=== PATIENT | male | born 1970 | race Two or more races ===

== ENCOUNTER 2023-08-06 21:01 | Inpatient (IN) | payer MEDICARE, MEDICAID ==
[~2023-08-06] VITALS: Ht 177.8 cm; Wt 110.0 kg
[2023-08-06] MEDS ORDERED: ONDANSETRON HCL 4 MG/2 ML VIAL ONE (21:04)
[2023-08-06] MEDS ORDERED: ONDANSETRON HCL 4 MG/2 ML VIAL IV ONE (21:15)
[2023-08-06 21:49] LABS: Basophils # (auto) 0 10 ^3/uL (0-0.2); Basophils % (auto) 0.1 % (0.0-2.0); Eosinophils # (auto) 0 10 ^3/uL (0-0.8); Eosinophils % (auto) 0.1 % (0.0-7.0); Hematocrit 40.1 % (41.0-53.0); Hemoglobin 13.5 g/dL (13.5-17.5); Lymphocytes # (auto) 0.8 10 ^3/uL (0.4-5.4); Lymphocytes % (auto) 4.2 % (10.0-50.0); Mean Corpuscular Hemoglobin 29.1 pg (28.0-32.0); Mean Corpuscular Hgb Conc. 33.7 g/dL (32.0-36.0); Mean Corpuscular Volume 86.5 fL (80.0-100.0); Monocytes % (auto) 4.9 % (0.0-12.0); Neutrophils # (auto) 17.9 10 ^3/uL (1.6-8.6); Neutrophils % (auto) 90.7 % (37.0-80.0); Red Blood Cells 4.64 10^6/uL (4.5-5.90); Red Cell Distribution Width 14.1 % (11.8-14.3); White Blood Cell 19.7 10^3/uL (4.4-10.8)
[2023-08-06] MEDS ORDERED: DEXTROSE 50% SYRINGE 50 ML IV ONE (21:52)
[2023-08-06 22:00] LABS: Alanine Aminotransferase 44 U/L (7-40); Albumin 3.3 g/dL (3.2-4.8); Alkaline Phosphatase 70 U/L (46-116); Anion Gap 7 (5-15); Aspartate Aminotransferase 56 U/L (13-40); BUN/Creatinine Ratio 22.2 (10.0-20.0); Bilirubin, Total 0.4 mg/dL (0.2-1.0); Blood Urea Nitrogen 20 mg/dL (9-23); Calcium 7.4 mg/dL (8.7-10.4); Carbon Dioxide 26 mmol/L (20-30); Chloride 95 mmol/L (98-107); Glucose 76 mg/dL (74-106); Potassium 2.7 mmol/L (3.5-5.1); Sodium 128 mmol/L (136-145)
[2023-08-06] MEDS ORDERED: DEXTROSE (50%) 50ML SYRG IV ONE (22:00)
[2023-08-06 22:01] LABS: Total Protein 5.6 g/dL (5.7-8.2)
[2023-08-06] MEDS ORDERED: SODIUM CHLORIDE 0.9% 1,000 ML IVB ONE (22:15)
[2023-08-06 22:55] LABS: INR 1.06 (0.9-1.15); Partial Thromboplastin Time 30.8 SEC (24.5-34.5); Prothrombin Time 11.1 sec (9.3-11.8)
[2023-08-07] VITALS (12 sets, daily range): BP systolic 97–114; BP diastolic 57–67; PULSE 74–105; RESP 13–24; TEMP 98.4; O2SAT 93–98
[2023-08-07] MEDS ORDERED: DEXTROSE 50% SYRINGE 50 ML IV ONE (00:14)
[2023-08-07] MEDS ORDERED: DEXTROSE 10% 1,000 ML IV SCH ×2 (00:15→06:15)
[2023-08-07] MEDS ORDERED: DEXTROSE (50%) 50ML SYRG IV ONE (00:15)
[2023-08-07 01:00] LABS: Lactic Acid w/Reflex 2.3 mmol/L (0.4-2.0)
[2023-08-07] MEDS ORDERED: SODIUM CHLORIDE 0.9% 3,150 ML IV ONE (02:00)
[2023-08-07] MEDS ORDERED: GLUCAGON EMERG KIT 1mg/1ml IM ONE (02:00)
[2023-08-07] MEDS ORDERED: OCTREOTIDE ACETATE 500 MCG in SODIUM CHL 0.9% 99 ML IV SCH (02:00)
[2023-08-07] MEDS ORDERED: cefTRIAXone 1GM/50ML D5W 50 ML IV ONE (02:45)
[2023-08-07] MEDS ORDERED: ACETAMINOPHEN 325 MG TAB PO PRN (02:45)
[2023-08-07] MEDS ORDERED: NITROGLYCERIN 0.4 MG SL TAB SL PRN (02:45)
[2023-08-07] MEDS ORDERED: MORPHINE SULFATE INJ 2 MG/ml SYRG IV PRN (02:45)
[2023-08-07] MEDS ORDERED: DEXTROSE (50%) 50ML SYRG IV PRN (02:45)
[2023-08-07] MEDS: POTASSIUM CHL 20MEQ/100ML 100 ML IV SCH ×2 (03:30→06:37)
[2023-08-07] MEDS: InsuLIN REG 1unit/0.01ml Soln (100units/ml) SC SCH ×5 (04:00→20:00)
[2023-08-07] MEDS ORDERED: ACCU-CHEK COMFORT CURVE STRIP VI SCH (04:00)
[2023-08-07] MEDS ORDERED: LACTATED RINGER'S 1,000 ML IV ONE (04:15)
[2023-08-07] MEDS: ACCU-CHEK COMFORT CURVE STRIP VI SCH ×8 (04:28→22:16)
[2023-08-07] MEDS: metroNIDAZOLE 500MG/100ML 100 ML IV SCH ×4 (05:00→21:44)
[2023-08-07 05:56] LABS: Lactic Acid w/Reflex 3.3 mmol/L (0.4-2.0)
[2023-08-07] MEDS ORDERED: PIPERACILLIN-TAZOB 3.375GM 100 ML IV SCH (06:00)
[2023-08-07 06:53] LABS: Urine Bacteria FEW /hpf (None Seen); Urine Blood Negative /uL (Negative); Urine Clarity Clear (Clear); Urine Color Straw (Yellow); Urine Protein, UAD Negative (Negative); Urine Specific Gravity 1.004 (1.001-1.035); Urine Urobilinogen Normal (Negative); Urine WBC <1 /hpf (0 - 3)
[2023-08-07 07:01] LABS: Amphetamine Screen, Urine Neg (NEGATIVE); Barbiturate Scree,Urine Neg (NEGATIVE); Benzodiazephine Screen, Urine Neg (NEGATIVE); Cocaine Screen, Urine Neg (NEGATIVE)
[2023-08-07 07:02] LABS: Cannabinoid Screen, Urine Neg (NEGATIVE); Opiate Scree,Urine Neg (NEGATIVE); Phencyclidine Screen, Urine Neg (NEGATIVE)
[2023-08-07] MEDS ORDERED: cefTRIAXone 1GM/50ML D5W 50 ML IV SCH (09:00)
[2023-08-07] MEDS: ENOXAPARIN SOD 40 MG/0.4 ML SYRINGE SC SCH (10:00)
[2023-08-07] MEDS ORDERED: VANCOMYCIN 1GM/250ML 250 ML IV SCH (10:00)
[2023-08-07] MEDS ORDERED: GLIP5TAB12 PO (16:33)
[2023-08-07] MEDS ORDERED: PIOG1TAB51 OR (16:33)
[2023-08-07] MEDS ORDERED: ARIP1TAB7 PO (16:33)
[2023-08-07] MEDS ORDERED: COLE1TAB5 PO (16:33)
[2023-08-07] MEDS ORDERED: LOSA25TA15 PO (16:33)
[2023-08-07] MEDS ORDERED: METF-371 PO (16:52)
[2023-08-07 17:53] LABS: Chloride 100 mmol/L (98-107); Sodium 132 mmol/L (136-145)
[2023-08-07 17:54] LABS: Anion Gap 4 (5-15); Calcium 7.5 mg/dL (8.7-10.4); Carbon Dioxide 28 mmol/L (20-30)
[2023-08-07 17:59] LABS: BUN/Creatinine Ratio 20.3 (10.0-20.0); Blood Urea Nitrogen 14 mg/dL (9-23); Glucose 168 mg/dL (74-106)
[2023-08-07 18:00] LABS: Magnesium 1.1 mg/dL (1.6-2.6)
[2023-08-07] MEDS: D5W/SOD CHL 0.45%/KCL 20MEQ 1,000 ML IV SCH (20:07)
[2023-08-08] MEDS ORDERED: ACCU-CHEK COMFORT CURVE STRIP VI SCH
[2023-08-08] MEDS: cefTRIAXone 1GM/50ML D5W 50 ML IV SCH (03:37)
[2023-08-08] MEDS: ACCU-CHEK COMFORT CURVE STRIP VI SCH ×8 (03:38→22:00)
[2023-08-08] MEDS: InsuLIN REG 1unit/0.01ml Soln (100units/ml) SC SCH ×5 (03:38→22:00)
[2023-08-08] MEDS: D5W/SOD CHL 0.45%/KCL 20MEQ 1,000 ML IV SCH (03:59)
[2023-08-08] MEDS: metroNIDAZOLE 500MG/100ML 100 ML IV SCH ×3 (05:55→22:55)
[2023-08-08 06:28] LABS: Basophils # (auto) 0 10 ^3/uL (0-0.2); Basophils % (auto) 0.3 % (0.0-2.0); Eosinophils # (auto) 0.1 10 ^3/uL (0-0.8); Hematocrit 34.8 % (41.0-53.0); Hemoglobin 11.7 g/dL (13.5-17.5); Lymphocytes # (auto) 1.1 10 ^3/uL (0.4-5.4); Lymphocytes % (auto) 10.3 % (10.0-50.0); Mean Corpuscular Hemoglobin 28.8 pg (28.0-32.0); Mean Corpuscular Hgb Conc. 33.6 g/dL (32.0-36.0); Mean Corpuscular Volume 85.6 fL (80.0-100.0); Monocytes # (auto) 0.7 10 ^3/uL (0-1.3); Monocytes % (auto) 6.9 % (0.0-12.0); Neutrophils # (auto) 8.3 10 ^3/uL (1.6-8.6); Neutrophils % (auto) 81.5 % (37.0-80.0); Red Blood Cells 4.07 10^6/uL (4.5-5.90); Red Cell Distribution Width 14.2 % (11.8-14.3); White Blood Cell 10.2 10^3/uL (4.4-10.8)
[2023-08-08 06:34] LABS: Albumin 2.8 g/dL (3.2-4.8); Alkaline Phosphatase 71 U/L (46-116); Anion Gap 4 (5-15); Aspartate Aminotransferase 22 U/L (13-40); BUN/Creatinine Ratio 19.4 (10.0-20.0); Blood Urea Nitrogen 13 mg/dL (9-23); Calcium 7.9 mg/dL (8.5-10.1); Carbon Dioxide 29 mmol/L (20-30); Chloride 102 mmol/L (98-107); Glucose 145 mg/dL (74-106); Potassium 3.3 mmol/L (3.5-5.1); Sodium 135 mmol/L (136-145)
[2023-08-08 06:35] LABS: Bilirubin, Total 0.4 mg/dL (0.2-1.0); Total Protein 4.8 g/dL (5.7-8.2)
[2023-08-08 06:56] LABS: Alanine Aminotransferase 33 U/L (7-40)
[2023-08-08 07:40] VITALS: PULSE 75; RESP 13; O2SAT 97
[2023-08-08] MEDS ORDERED: DEXTROSE (50%) 50ML SYRG IV PRN (08:45)
[2023-08-08] MEDS ORDERED: cefTRIAXone 1GM/50ML D5W 50 ML IV SCH (09:00)
[2023-08-08] MEDS: SOD CHL 0.9%/ KCL 40MEQ 1,000 ML IV SCH ×2 (09:27→21:50)
[2023-08-08] MEDS: ENOXAPARIN SOD 40 MG/0.4 ML SYRINGE SC SCH (10:42)
[2023-08-08] MEDS ORDERED: CHOLESTYRAMINE 4 GM POWDER PO ONE (15:00)
[2023-08-08] MEDS ORDERED: DIPHENOXYLATE W/ATROPINE 2.5 MG TAB PO PRN (15:00)
[2023-08-08 16:12] VITALS: BP 118/63; PULSE 73; RESP 20; TEMP 97.6; O2SAT 94
[2023-08-08 18:00] VITALS: O2SAT 94
[2023-08-08 22:00] VITALS: BP 100/59; PULSE 83; RESP 20; TEMP 98.2; O2SAT 95
[2023-08-09] MEDS: cefTRIAXone 1GM/50ML D5W 50 ML IV SCH (03:16)
[2023-08-09] MEDS: ACCU-CHEK COMFORT CURVE STRIP VI SCH ×10 (04:00→21:44)
[2023-08-09 05:00] VITALS: BP 140/78; PULSE 69; RESP 19; TEMP 98.4; O2SAT 93
[2023-08-09] MEDS: metroNIDAZOLE 500MG/100ML 100 ML IV SCH ×3 (06:00→21:46)
[2023-08-09] MEDS: InsuLIN REG 1unit/0.01ml Soln (100units/ml) SC SCH ×4 (06:58→21:45)
[2023-08-09 07:03] LABS: Basophils # (auto) 0 10 ^3/uL (0-0.2); Basophils % (auto) 0.4 % (0.0-2.0); Eosinophils # (auto) 0.1 10 ^3/uL (0-0.8); Eosinophils % (auto) 1.3 % (0.0-7.0); Hematocrit 34.3 % (41.0-53.0); Hemoglobin 11.6 g/dL (13.5-17.5); Lymphocytes # (auto) 1.1 10 ^3/uL (0.4-5.4); Lymphocytes % (auto) 13.4 % (10.0-50.0); Mean Corpuscular Hemoglobin 29.3 pg (28.0-32.0); Mean Corpuscular Hgb Conc. 33.9 g/dL (32.0-36.0); Mean Corpuscular Volume 86.3 fL (80.0-100.0); Monocytes # (auto) 0.7 10 ^3/uL (0-1.3); Monocytes % (auto) 9.1 % (0.0-12.0); Neutrophils # (auto) 6.1 10 ^3/uL (1.6-8.6); Neutrophils % (auto) 75.8 % (37.0-80.0); Nucleated Red Blood Cells % 0.1 %; Red Blood Cells 3.97 10^6/uL (4.5-5.90); Red Cell Distribution Width 14.2 % (11.8-14.3)
[2023-08-09 07:14] LABS: Chloride 106 mmol/L (98-107); Potassium 3.6 mmol/L (3.5-5.1); Sodium 139 mmol/L (136-145)
[2023-08-09 07:15] LABS: Anion Gap 4 (5-15); Carbon Dioxide 29 mmol/L (20-30)
[2023-08-09 07:21] LABS: BUN/Creatinine Ratio 17.6 (10.0-20.0); Blood Urea Nitrogen 9 mg/dL (9-23); Glucose 110 mg/dL (74-106)
[2023-08-09 09:00] VITALS: BP 136/85; PULSE 75; RESP 18; TEMP 98.3; O2SAT 90
[2023-08-09] MEDS: ENOXAPARIN SOD 40 MG/0.4 ML SYRINGE SC SCH (10:28)
[2023-08-09] MEDS: CHOLESTYRAMINE 4 GM POWDER PO SCH (10:29)
[2023-08-09] MEDS: SOD CHL 0.9%/ KCL 40MEQ 1,000 ML IV SCH (11:41)
[2023-08-09 13:00] VITALS: BP 120/63; PULSE 79; RESP 19; TEMP 98.1; O2SAT 90
[2023-08-09 20:00] VITALS: PULSE 70; RESP 20; O2SAT 93
[2023-08-09 22:00] VITALS: BP 111/70; PULSE 70; RESP 20; TEMP 98.6; O2SAT 93
[2023-08-10] VITALS (7 sets, daily range): BP systolic 110–144; BP diastolic 78–90; PULSE 69–76; RESP 16–20; TEMP 97.6–98.8; O2SAT 91–100
[2023-08-10] MEDS: SOD CHL 0.9%/ KCL 40MEQ 1,000 ML IV SCH (01:35)
[2023-08-10] MEDS: cefTRIAXone 1GM/50ML D5W 50 ML IV SCH (03:03)
[2023-08-10] MEDS: ACCU-CHEK COMFORT CURVE STRIP VI SCH ×10 (04:00→22:07)
[2023-08-10] MEDS: InsuLIN REG 1unit/0.01ml Soln (100units/ml) SC SCH ×4 (06:16→22:15)
[2023-08-10] MEDS: metroNIDAZOLE 500MG/100ML 100 ML IV SCH ×3 (06:16→22:07)
[2023-08-10 06:52] LABS: Chloride 107 mmol/L (98-107); Potassium 4.3 mmol/L (3.5-5.1); Sodium 141 mmol/L (136-145)
[2023-08-10 06:53] LABS: Anion Gap 4 (5-15); Calcium 7.9 mg/dL (8.5-10.1); Carbon Dioxide 30 mmol/L (20-30)
[2023-08-10 06:58] LABS: BUN/Creatinine Ratio 17.5 (10.0-20.0); Blood Urea Nitrogen 10 mg/dL (9-23); Glucose 111 mg/dL (74-106)
[2023-08-10 07:01] LABS: Hematocrit 33.6 % (41.0-53.0); Hemoglobin 11.1 g/dL (13.5-17.5); Mean Corpuscular Hemoglobin 28.6 pg (28.0-32.0); Mean Corpuscular Hgb Conc. 33.1 g/dL (32.0-36.0); Mean Corpuscular Volume 86.7 fL (80.0-100.0); Red Blood Cells 3.87 10^6/uL (4.5-5.90); Red Cell Distribution Width 14.3 % (11.8-14.3); White Blood Cell 6.7 10^3/uL (4.4-10.8)
[2023-08-10 07:14] LABS: Basophils % (manual) 0 (0.0-2.0); Blast Cells 0; Myelocytes % 0; Reactive Lymphocytes 0
[2023-08-10] MEDS ORDERED: FUROSEMIDE 20 MG/2 ML VIAL IV ONE (09:15)
[2023-08-10 09:26] LABS: Band Neutrophils % (manual) 3; Eosinophils % (manual) 1 (0-7); Lymphocytes % (manual) 11 (10.0-50.0); Metamyelocytes % 1; Monocytes % (manual) 6 (0-12); Platelet Estimate Adequate; Promyelocytes % 1
[2023-08-10] MEDS: ENOXAPARIN SOD 40 MG/0.4 ML SYRINGE SC SCH (09:36)
[2023-08-10] MEDS: CHOLESTYRAMINE 4 GM POWDER PO SCH (11:30)
[2023-08-11] MEDS: ACCU-CHEK COMFORT CURVE STRIP VI SCH ×10 (04:00→21:34)
[2023-08-11 05:00] VITALS: BP 129/84; PULSE 70; RESP 18; TEMP 98; O2SAT 98
[2023-08-11] MEDS: metroNIDAZOLE 500MG/100ML 100 ML IV SCH ×3 (05:28→21:31)
[2023-08-11] MEDS: InsuLIN REG 1unit/0.01ml Soln (100units/ml) SC SCH ×4 (06:23→21:32)
[2023-08-11 07:22] LABS: Basophils # (auto) 0 10 ^3/uL (0-0.2); Basophils % (auto) 0.7 % (0.0-2.0); Eosinophils # (auto) 0.1 10 ^3/uL (0-0.8); Eosinophils % (auto) 1.2 % (0.0-7.0); Hematocrit 34.6 % (41.0-53.0); Hemoglobin 11.6 g/dL (13.5-17.5); Lymphocytes % (auto) 14.6 % (10.0-50.0); Mean Corpuscular Hemoglobin 29.1 pg (28.0-32.0); Mean Corpuscular Hgb Conc. 33.4 g/dL (32.0-36.0); Mean Corpuscular Volume 87.1 fL (80.0-100.0); Monocytes # (auto) 0.6 10 ^3/uL (0-1.3); Neutrophils # (auto) 5.4 10 ^3/uL (1.6-8.6); Neutrophils % (auto) 75.5 % (37.0-80.0); Nucleated Red Blood Cells % 0.1 %; Red Blood Cells 3.97 10^6/uL (4.5-5.90); Red Cell Distribution Width 14.7 % (11.8-14.3); White Blood Cell 7.1 10^3/uL (4.4-10.8)
[2023-08-11 07:48] LABS: Chloride 104 mmol/L (98-107); Potassium 4.2 mmol/L (3.5-5.1); Sodium 141 mmol/L (136-145)
[2023-08-11 07:49] LABS: Anion Gap 5 (5-15); Carbon Dioxide 32 mmol/L (20-30)
[2023-08-11 07:50] LABS: Calcium 8.3 mg/dL (8.5-10.1)
[2023-08-11 07:54] LABS: BUN/Creatinine Ratio 17.7 (10.0-20.0); Blood Urea Nitrogen 11 mg/dL (9-23); Glucose 109 mg/dL (74-106)
[2023-08-11 08:55] VITALS: BP 128/76; PULSE 63; RESP 20; TEMP 98.6; O2SAT 94
[2023-08-11] MEDS: AZITHROMYCIN 500MG/ 250ML 250 ML IV SCH (10:47)
[2023-08-11] MEDS: CHOLESTYRAMINE 4 GM POWDER PO SCH (10:47)
[2023-08-11] MEDS: ENOXAPARIN SOD 40 MG/0.4 ML SYRINGE SC SCH (10:48)
[2023-08-11 12:55] VITALS: BP 149/81; PULSE 62; RESP 21; TEMP 98.5; O2SAT 94
[2023-08-11 16:48] LABS: COVID19 ANTIGEN SOFIA FIA NEGATIVE (NEGATIVE)
[2023-08-11 16:50] VITALS: BP 123/71; PULSE 63; RESP 21; TEMP 98.5; O2SAT 93
[2023-08-12] MEDS: ACCU-CHEK COMFORT CURVE STRIP VI SCH ×10 (04:00→23:05)
[2023-08-12 05:00] VITALS: BP 130/61; PULSE 62; RESP 18; O2SAT 93
[2023-08-12] MEDS: metroNIDAZOLE 500MG/100ML 100 ML IV SCH ×3 (05:54→22:49)
[2023-08-12] MEDS: InsuLIN REG 1unit/0.01ml Soln (100units/ml) SC SCH ×4 (06:30→22:00)
[2023-08-12 08:00] VITALS: BP 119/59; PULSE 75; RESP 18; TEMP 98.4; O2SAT 92
[2023-08-12 09:00] VITALS: BP 119/59; PULSE 75; RESP 18; O2SAT 92
[2023-08-12] MEDS: AZITHROMYCIN 500MG/ 250ML 250 ML IV SCH (10:00)
[2023-08-12] MEDS: CHOLESTYRAMINE 4 GM POWDER PO SCH (10:00)
[2023-08-12] MEDS: ENOXAPARIN SOD 40 MG/0.4 ML SYRINGE SC SCH (10:01)
[2023-08-12] MEDS ORDERED: cefTRIAXone 1GM/50ML D5W 50 ML IV ONE (10:30)
[2023-08-12 13:00] VITALS: BP 125/69; PULSE 68; RESP 18; TEMP 98.4; O2SAT 92
[2023-08-12 17:00] VITALS: BP 131/71; PULSE 69; RESP 18; TEMP 98.1; O2SAT 92
[2023-08-12 22:00] VITALS: BP 121/66; PULSE 68; RESP 19; TEMP 98.8; O2SAT 93
[2023-08-13] MEDS: ACCU-CHEK COMFORT CURVE STRIP VI SCH ×5 (00:02→11:29)
[2023-08-13 04:32] VITALS: BP 118/66; PULSE 70; RESP 20; TEMP 98.2; O2SAT 96
[2023-08-13] MEDS: InsuLIN REG 1unit/0.01ml Soln (100units/ml) SC SCH ×2 (06:23→11:56)
[2023-08-13] MEDS: metroNIDAZOLE 500MG/100ML 100 ML IV SCH (06:23)
[2023-08-13 08:00] VITALS: BP 119/59; PULSE 61; PULSE 75; RESP 18; RESP 20; TEMP 98.4; O2SAT 92
[2023-08-13] MEDS ORDERED: cefTRIAXone 1GM/50ML D5W 50 ML IV SCH (09:00)
[2023-08-13 09:17] VITALS: BP 138/80; PULSE 61; RESP 20; TEMP 97.9; O2SAT 92
[2023-08-13] MEDS: AZITHROMYCIN 500MG/ 250ML 250 ML IV SCH ×2 (10:00→11:29)
[2023-08-13] MEDS ORDERED: LEVO500T91 PO (10:06)
[2023-08-13] MEDS ORDERED: BLOO1KIT60 XX (10:06)
[2023-08-13] MEDS ORDERED: METF-370 PO (10:06)
[2023-08-13] MEDS: CHOLESTYRAMINE 4 GM POWDER PO SCH (11:29)
[2023-08-13] MEDS: ENOXAPARIN SOD 40 MG/0.4 ML SYRINGE SC SCH (11:29)
[2023-08-13 13:03] VITALS: BP 137/88; PULSE 63; RESP 20; TEMP 97.5; O2SAT 92
[2023-08-13 13:35] VITALS: BP 137/88; PULSE 63; RESP 20; TEMP 97.5; O2SAT 92
== END 2023-08-13 16:04 | disposition home or self-care (01) | DRG 871 ==
LOC: ER 21:01 → EDBD 21:01 → TELE 08-07 02:49 → TELE-EAST 08-08 15:38 → EAST 08-10 00:21 → CENTRAL 08-11 19:45
PROVIDERS: ADMIT Nurse Practitioner; ATTEND Nurse Practitioner Acute Care
DX: A41.9 Sepsis, unspecified organism (principal); G93.41 Metabolic encephalopathy; R65.21 Severe sepsis with septic shock; E87.1 Hypo-osmolality and hyponatremia; N17.9 Acute kidney failure, unspecified; E11.649 Type 2 diabetes mellitus with hypoglycemia without coma; E66.9 Obesity, unspecified; E87.6 Hypokalemia; R19.7 Diarrhea, unspecified; Z68.21 Body mass index [BMI] 21.0-21.9, adult; D64.9 Anemia, unspecified; I27.20 Pulmonary hypertension, unspecified; K76.0 Fatty (change of) liver, not elsewhere classified; K80.20 Calculus of gallbladder without cholecystitis without obstruction; Z20.822 Contact with and (suspected) exposure to COVID-19
CPT/HCPCS: 36415; 70450; 71045; 71250; 74176; 80048; 80053; 80307; 80320; 81001; 82010; 82962; 83036; 83605; 83735; 83880; 84443; 84484; 85007; 85025; 85027; 85610; 85730; 87040; 87045; 87086; 87426; 87427; 87493; 96361; 96374; 96376; 97110; 97116; 97163; 97530; G0378; J0696; J1815; J2405; J3480; J3490

== ENCOUNTER 2024-11-18 20:31 | Inpatient (IN) | payer MEDICAID, MEDICARE ==
[~2024-11-18] VITALS: Ht 167.6 cm; Wt 57.2 kg
[~2024-11-18 20:31] MED LIST: ARIP20TA4 PO; BLOO1KIT60 XX; COLE1TAB5 PO; LEVO500T91 PO; LOSA-533 PO; METF-370 PO
--- NOTE | 2024-11-18 21:04 | ED.PDOC ---
History of Present Illness HPI Comments 54y/o M, brought in by caregiver presents to the ED for CC of abdominal pain. Per caregiver, patient has been experiencing abdominal pain with associated dermatitis x6-7weeks. Caregiver relays, patient was seen by PCP for symptoms an was prescribed an ointment for the rash and an enema was given resulting in moderate stool excretion. Caregiver states, that patient is not acting appropriately and is not performing at his normal baseline. No other symptoms or modifying factors at this time. Chief Complaint: Abdominal Pain Time Seen by MD: 21:01 Reviewed Notes: Nurses Notes, Medications, Allergies Allergies: Coded Allergies: NO KNOWN ALLERGIES (Unverified , 08/06/23) Home Meds Active Scripts Blood Glucose Monitoring Suppl (D-Care Glucometer Kit/Glu W/Device) 1 Kit Kit, KIT XX BID, #1 Prov:MARIA T MCKEON BOMB LOADER 08/13/23 Levofloxacin Hemihydrate (LEVAQUIN 500 MG) 500 Mg Tab, 500 MG PO DAILY for 7 Days, #7 TAB Prov:MARIA T MCKEON BOMB LOADER 08/13/23 Metformin Hydrochloride (Metformin Hcl) 500 Mg Tab, 0.5 TAB PO BID for 60 Days, #60 TAB 3 Refills Prov:MARIA T MCKEON BOMB LOADER 08/13/23 Reported Medications Aripiprazole (Abilify) 20 Mg Tab, 1 TAB PO DAILY, #30 TAB 1 Refill 08/07/23 Colestipol Hcl (Micronized Colestipol Hcl) 1 Gm Tab, 1 GM PO DAILY, TAB 08/07/23 Losartan Potassium (Losartan Potassium) 25 Mg Tab, 1 TAB PO DAILY, #90 TAB 1 Refill 08/07/23 Information Source: Relative Mode of Arrival: Wheelchair Severity: Moderate Timing: Weeks Duration: Since onset Prehospital treatment: None Past Medical History PAST MEDICAL HISTORY: DM, HTN Surgical History: Denies all surgeries Family History Family History: Unknown Social History Smoker: Non-Smoker Alcohol: Denies ETOH Use Drugs: Denies Drug Use Lives In: Home Constitutional: denies: chills, diaphoresis, fatigue, fever, malaise, sweats, weakness, others EENTM: denies: blurred vision, double vision, ear bleeding, ear discharge, ear drainage, ear pain, ear ringing, eye pain, eye redness, hearing loss, mouth pain, mouth swelling, nasal discharge, nose bleeding, nose congestion, nose pain, photophobia, tearing, throat pain, throat swelling, voice changes, others Respiratory: denies: cough, hemoptysis, orthopnea, SOB at rest, shortness of breath, SOB with excertion, stridor, wheezing, others Cardiovascular: denies: chest pain, dizzy spells, diaphoresis, Dyspnea on exertion, edema, irregular heart beat, left arm pain, lightheadedness, palpitations, PND, syncope, others Gastrointestinal: reports: abdominal pain, constipated; denies: abdomen distended, blood streaked bowels, diarrhea, dysphagia, difficulty swallowing, hematemesis, melena, nausea, poor appetite, poor fluid intake, rectal bleeding, rectal pain, vomiting, others Genitourinary: denies: burning, dysuria, flank pain, frequency, hematuria, incontinence, penile discharge, penile sore, pain, testicle pain, testicle swelling, urgency, others Neurological: denies: dizziness, fainting, headache, left sided numbness, left sided weakness, numbness, paresthesia, pre-existing deficit, right sided numbness, right sided weakness, seizure, speech problems, tingling, tremors, weakness, others Musculoskeletal: denies: back pain, gout, joint pain, joint swelling, muscle pain, muscle stiffness, neck pain, others Integumetry: denies: bruises, change in color, change in hair/nails, dryness, laceration, lesions, lumps, rash, wounds, others Allergic/Immunocompromised: denies: Difficulty Healing, Frequent Infections, Hives, Itching, others Hematologic/Lymphatic: denies: anemia, blood clots, easy bleeding, easy bruising, swollen glands, others Endocrine: denies: excessive hunger, excessive sweating, excessive thirst, excessive urination, flushing, intolerance to cold, intolerance to heat, unexplained weight gain, unexplained weight loss, others Psychiatric: denies: anxiety, bipolar disorder, depression, hopeless, panic disorder, schizophrenia, sleepless, suicidal, others All Other Systems: Reviewed and Negative Physical Exam General Appearance: Moderate Distress, Normal HEENT: Normal ENT Inspection, Pharynx Normal, TMs Normal Neck: Full Range of Motion, Non-Tender, Normal, Normal Inspection Respiratory: Chest Non-Tender, Lungs Clear, No Accessory Muscle Use, No Respiratory Distress, Normal Breath Sounds Cardiovascular: No Edema, No JVD, No Murmur, No Gallop, Normal Peripheral Pulses, Regular Rate/Rhythm Breast Exam: Deferred Gastrointestinal: No Organomegaly, Non Tender, No Pulsatile Mass, Normal Bowel Sounds, Soft Genitalia: Deferred Pelvic: Deferred Rectal: Deferred Extremities: No calf tenderness, Normal capillary refill, Normal inspection, Normal range of motion, Non-tender, No pedal edema Musculoskeletal : Apperance: Normal Neurologic: Depressed Affect, Other (MENTAL DELAYS, DOES NOT NORMAL BASELINE IN HIS, CAREGIVER STATES PATIENT NOT ACTING SELF) Cerebellar Function: NOT DONE Reflexes: Normal, NOT DONE Skin: Dry, Normal Color, Warm Lymphatic: No Adenopathy Was a procedure done? Was a procedure done?: No Differential Dx Considerations may include: Cellulitis, psoriasis, contact dermitis, gastritis, diverticulitis, constipation, viral, bacterial, food poisoning X-Ray, Labs, Meds, VS Vital Signs Date Time Temp Pulse Resp B/P (MAP) Pulse Ox O2 Delivery O2 Flow Rate FiO2 11/18/24 20:31 91.3 56 12 150/85 (106) 95 91.3 Lab Test 11/18/24 21:16 11/18/24 21:14 Range/Units White Blood Count 4.9 4.4-10.8 10^3/uL Red Blood Count 3.99 L 4.5-5.90 10^6/uL Hemoglobin 12.0 L 13.5-17.5 g/dL Hematocrit 36.2 L 41.0-53.0 % Mean Corpuscular Volume 90.6 80.0-100.0 fL Mean Corpuscular Hemoglobin 30.1 28.0-32.0 pg Mean Corpuscular Hemoglobin Concent 33.2 32.0-36.0 g/dL Red Cell Distribution Width 17.8 H 11.8-14.3 % Platelet Count 92 L 140-450 10^3/uL Mean Platelet Volume 9.3 6.9-10.8 fL Neutrophils (%) (Auto) 84.3 H 37.0-80.0 % Lymphocytes (%) (Auto) 10.3 10.0-50.0 % Monocytes (%) (Auto) 4.9 0.0-12.0 % Eosinophils (%) (Auto) 0.4 0.0-7.0 % Basophils (%) (Auto) 0.1 0.0-2.0 % Neutrophils # (Auto) 4.1 1.6-8.6 10 ^3/uL Lymphocytes # (Auto) 0.5 0.4-5.4 10 ^3/uL Monocytes # (Auto) 0.2 0-1.3 10 ^3/uL Eosinophils # (Auto) 0 0-0.8 10 ^3/uL Basophils # (Auto) 0 0-0.2 10 ^3/uL Nucleated Red Blood Cells 0.2 % Sodium Level 138 136-145 mmol/L Potassium Level 4.5 3.5-5.1 mmol/L Chloride Level 102 98-107 mmol/L Carbon Dioxide Level 34 H 20-31 mmol/L Anion Gap 2 L 5-15 Blood Urea Nitrogen 24 H 9-23 mg/dL Creatinine 0.53 L 0.700-1.30 mg/dL Glomerular Filtration Rate Calc 119 >90 mL/min BUN/Creatinine Ratio 45.3 H 10.0-20.0 Serum Glucose 194 H 74-106 mg/dL Lactic Acid Level 1.5 0.4-2.0 mmol/L Calcium Level 10.3 8.7-10.4 mg/dL Total Bilirubin 0.4 0.2-1.0 mg/dL Aspartate Amino Transferase (AST) 34 13-40 U/L Alanine Aminotransferase (ALT) 51 H 7-40 U/L Alkaline Phosphatase 107 46-116 U/L Total Protein 6.3 5.7-8.2 g/dL Albumin 3.8 3.2-4.8 g/dL Lipase 47 12-53 U/L POC Glucose 179 H 70-106 mg/dl X-Ray, Labs, Meds, VS Comment PATIENT WILL BE ADMITTED FOR PNEUMONIA AND CHANGE IN MENTAL STATUS FOLLOWING ASSESSMENT OF VITALS, PATIENT WAS BRADYCARDIC ISAC HUGGER PLACED ON PATIENT WARMING FLUIDS TO BE STARTED Time of 1ST Reevaluation: 21:31 Reevaluation 1ST: Unchanged Patient Education/Counseling: Diagnosis, Treatment Family Education/Counseling: Diagnosis, Treatment Departure 1 Departure Time of Disposition: 23:49 Impression: Primary Impression: Pneumonia Qualified Codes: J18.9 - Pneumonia, unspecified organism Additional Impression: Change in mental status Qualified Codes: R40.0 - Somnolence Disposition: ADMITTED INPATIENT Condition: Critical Discharged With: Self Critical Care Note Critical Care Time?: Yes (30 min-critical care time only) Critical care comment: DUE TO A HIGH PROBABILITY OF CLINICALLY SIGNIFICANT, LIFE THREATENING DETERIORATION, THE PATIENT REQUIRED MY HIGHEST LEVEL OF PREPAREDNESS TO INTERVENE EMERGENTLY AND I PERSONALLY SPENT THIS CRITICAL CARE TIME DIRECTLY AND PERSONALLY MANAGING THE PATIENT. THIS CRITICAL CARE TIME INCLUDED OBTAINING A HISTORY; EXAMINING THE PATIENT; PULSE OXIMETRY; ORDERING AND REVIEW OF STUDIES; ARRANGING URGENT TREATMENT WITH DEVELOPMENT OF A MANAGEMENT PLAN; EVALUATION OF PATIENT'S RESPONSE TO TREATMENT; FREQUENT REASSESSMENT; AND, DISCUSSIONS WITH OTHER PROVIDERS. THIS CRITICAL CARE TIME WAS PERFORMED TO ASSESS AND MANAGE THE HIGH PROBABILITY OF IMMINENT, LIFE-THREATENING DETERIORATION THAT COULD RESULT IN MULTI-ORGAN FAILURE. IT WAS EXCLUSIVE OF SEPARATELY BILLABLE PROCEDURES AND TREATING OTHER PATIENTS AND TEACHING TIME. Stability Stability form required: No Heart Score Heart Score: Heart Score Response (Comments) Value History N/A 0 EKG N/A 0 Age N/A 0 Risk Factors N/A 0 Troponin N/A 0 Total 0 I personally scribed for ANTON EDMONDSON COMMUNICATION AND OUTREACH MANAGER ([email or web address]) on 11/18/24 at 21:04. Electronically submitted by Thao Arreaga ([email or web address]). I personally scribed for EDMONDSONBRYAN CAPELLANOPHER E COMMUNICATION AND OUTREACH MANAGER ([email or web address]) on 11/18/24 at 21:11. Electronically submitted by Thao Arreaga ([email or web address]). I personally scribed for EDMONDSONBRYANOPHER E COMMUNICATION AND OUTREACH MANAGER ([email or web address]) on 11/18/24 at 21:20. Electronically submitted by Thao Arreaga ([email or web address]). BRYAN EDMONDSONOPHER E COMMUNICATION AND OUTREACH MANAGER Nov 18, 2024 21:04
[2024-11-18 21:29] LABS: Basophils # (auto) 0 10 ^3/uL (0-0.2); Basophils % (auto) 0.1 % (0.0-2.0); Eosinophils # (auto) 0 10 ^3/uL (0-0.8); Eosinophils % (auto) 0.4 % (0.0-7.0); Hematocrit 36.2 % (41.0-53.0); Lymphocytes # (auto) 0.5 10 ^3/uL (0.4-5.4); Lymphocytes % (auto) 10.3 % (10.0-50.0); Mean Corpuscular Hemoglobin 30.1 pg (28.0-32.0); Mean Corpuscular Hgb Conc. 33.2 g/dL (32.0-36.0); Mean Corpuscular Volume 90.6 fL (80.0-100.0); Monocytes # (auto) 0.2 10 ^3/uL (0-1.3); Monocytes % (auto) 4.9 % (0.0-12.0); Neutrophils # (auto) 4.1 10 ^3/uL (1.6-8.6); Neutrophils % (auto) 84.3 % (37.0-80.0); Nucleated Red Blood Cells % 0.2 %; Platelet Count (auto) 92 10^3/uL (140-450); Red Blood Cells 3.99 10^6/uL (4.5-5.90); Red Cell Distribution Width 17.8 % (11.8-14.3); White Blood Cell 4.9 10^3/uL (4.4-10.8)
[2024-11-18 21:47] LABS: Albumin 3.8 g/dL (3.2-4.8); Alkaline Phosphatase 107 U/L (46-116); Anion Gap 2 (5-15); Aspartate Aminotransferase 34 U/L (13-40); BUN/Creatinine Ratio 45.3 (10.0-20.0); Calcium 10.3 mg/dL (8.7-10.4); Chloride 102 mmol/L (98-107); Lipase 47 U/L (12-53); Potassium 4.5 mmol/L (3.5-5.1); Sodium 138 mmol/L (136-145); Total Protein 6.3 g/dL (5.7-8.2)
[2024-11-18 21:48] LABS: Bilirubin, Total 0.4 mg/dL (0.2-1.0)
[2024-11-18 21:51] LABS: Alanine Aminotransferase 51 U/L (7-40); Blood Urea Nitrogen 24 mg/dL (9-23); Carbon Dioxide 34 mmol/L (20-31); Glucose 194 mg/dL (74-106)
--- NOTE | 2024-11-18 23:11 | DVH ---
CLINICAL HISTORY: abd distension TECHNIQUE: CT of the abdomen and pelvis was performed without intravenous contrast. This exam was per formed according to our departmental dose optimization program. Up-to-date CT equipment and radiation dose reduction techniques are utilized as appropriate. CTDI: 18.93 DLP: 947.69 WID: COMPARISON: CT CHST AB PEL WO CON-NO IV/ORAL on DOS: 08/07/23 FINDINGS: Evaluation limited due to lack of intravenous contrast limited evaluation of the viscera and vasculat ure Lower Thorax: Mild cardiomegaly without pericardial effusion. Small ground-glass opacity in the lingu la. Liver and Biliary system: Normal-sized liver. No definite hepatic lesion. Cholelithiasis and a evelyn l caliber gallbladder. No definite biliary ductal dilatation. Spleen: Unremarkable. Adrenal Glands and Kidneys: Grossly normal adrenal glands. There appears to be mild right hydronephro sis. No left hydronephrosis. Pancreas and Retroperitoneum: The pancreas is limited in evaluation due to lack of contrast. No gross ly enlarged retroperitoneal lymph nodes. Aorta and Major Vessels: Aortoiliac vessels are normal in caliber with mild calcified atherosclerotic plaque Bowel, Mesentery and Peritoneal space: Limited evaluation of the mesentery and peritoneal space due t o paucity of fat. The bowel loops are normal in caliber. There is marked retained stool in the colon. No free air or definite loculated fluid collection. Pelvis: Urinary bladder is moderately distended. Dystrophic calcifications in the prostate gland. No grossly enlarged pelvic lymph nodes. Abdominal wall and Osseous Structures: There is moderate body wall edema. There is [id number] l eft convexity scoliosis of the lumbar spine. Multilevel lower thoracic and lumbar spondylosis. No de structive osseous lesion. IMPRESSION: 1. Marked retained stool in the colon concordant with constipation. 2. No bowel obstruction, fluid collection, or free air. 3. Mild cardiomegaly. 4. Small ground-glass opacity in the lingula which could reflect atelectasis or scarring. Pneumonia is also a consideration. 5. Moderate body wall edema
[2024-11-18 23:34] LABS: Urine Bacteria None Seen /hpf (None Seen)
[2024-11-18] MEDS: SODIUM CHLORIDE 0.9% 1,000 ML IV ONE (23:50)
[2024-11-18 23:54] LABS: Urine Blood Negative /uL (Negative); Urine Clarity Clear (Clear); Urine Color Light-Yellow (Yellow); Urine Protein, UAD Negative (Negative); Urine Specific Gravity 1.018 (1.001-1.035); Urine Squamous Epithelial Cell None Seen /hpf (<5); Urine Urobilinogen Normal (Negative); Urine WBC < 1 /HPF (0-3); Urine pH 6.5 (5.0-9.0)
[2024-11-18] MEDS: cefTRIAXone 1GM/50ML D5W 50 ML IV ONE (23:58)
[2024-11-19] VITALS (8 sets, daily range): BP systolic 104–136; BP diastolic 63–85; PULSE 54–95; RESP 12–24; TEMP 98.3–98.9; O2SAT 93–99
[2024-11-19] MEDS ORDERED: AZITHROMYCIN 500MG/ 250ML 250 ML IV ONE (00:15)
[2024-11-19] MEDS: ACCU-CHEK COMFORT CURVE STRIP VI SCH ×2 (00:35→06:29)
[2024-11-19] MEDS ORDERED: NITROGLYCERIN 0.4 MG SL TAB SL PRN ×2 (00:45)
[2024-11-19] MEDS ORDERED: ONDANSETRON HCL 4 MG/2 ML VIAL IV PRN ×2 (00:45)
[2024-11-19] MEDS ORDERED: MORPHINE SULFATE INJ 2 MG/ml SYRG IV PRN ×2 (00:45)
[2024-11-19] MEDS ORDERED: DEXTROSE (50%) 50ML SYRG IV PRN ×2 (00:45)
[2024-11-19] MEDS ORDERED: ALBUTEROL SULF 2.5 MG/0.5ML(0.5%) NEB SOLN NEB PRN ×2 (00:45)
[2024-11-19] MEDS: AZITHROMYCIN 500MG/ 250ML 250 ML IV ONE (01:00)
--- NOTE | 2024-11-19 04:37 | DVHHP2 ---
History of Present Illness Reason for Visit: Generalized weakness History of Present Illness 54-year-old male presents for evaluation of generalized weakness. Patient noted to be progressively weaker by caregiver. Patient with a history of being developmentally delayed. Caregiver reports patient not acting at his normal baseline. No further history could be obtained at the moment no family at the bedside. Past Medical History , developmentally delayed, Hypertension and diabetes mellitus Review of Systems Review of Systems Review of systems are currently negative otherwise addressed in HPI. Allergies: Coded Allergies: NO KNOWN ALLERGIES (Unverified , 08/06/23) Medications Current Medications Medications Dose Ordered Sig/Elizabeth Route Start Time Stop Time Status Last Admin Dose Admin Nitroglycerin 0.4 mg Q5MINP PRN SL 11/19/24 00:45 Morphine Sulfate 2 mg Q30M PRN IV 11/19/24 00:45 Ceftriaxone Sodium 50 ml @ 100 mls/hr DAILY@09 IV 11/19/24 09:00 Azithromycin 250 ml @ 125 mls/hr DAILY IV 11/19/24 10:00 Albuterol 2.5 mg Q6HPRN PRN NEB 11/19/24 00:45 Diagnostic Test (Pha) 1 strip Q6HR 11/19/24 06:00 Insulin Human Regular Q6HR SC 11/19/24 06:00 Dextrose 50 ml UD PRN IV 11/19/24 00:45 Ondansetron HCl 4 mg Q4HP PRN IV 11/19/24 00:45 Exam Vital Signs Vital Signs Date Time Temp Pulse Resp B/P (MAP) Pulse Ox O2 Delivery O2 Flow Rate FiO2 11/19/24 01:29 91.4 91.4 11/19/24 01:18 56 12 98 Room Air* 0 21 11/19/24 01:00 117/66 (83) Exam Gen: 54-year-old male in mild distress Skin: Warm, dry, normal color and texture, no rash. HEENT: Normocephalic atraumatic, mucous membranes moist and pink. Neck: Cervical and supraclavicular nodes normal without enlargement, trachea is midline, thyroid gland is normal without masses. Pulmonary: Clear to auscultation and percussion bilaterally. Cardiac: Regular rate and rhythm. No murmur Abdomen: Soft, nontender, nondistended, bowel sounds present all 4 quadrants, no guarding, no rigidity, no organomegaly. Extremities: No cyanosis, clubbing, no edema Neuro: Lethargic, no focal motor deficits. Labs/Xrays ORDERING PHYSICIAN: ANTON EDMONDSON PROCEDURE(s): ABPL - CT AB PEL WO CON-NO ORAL OR IV REASON: abd distension ORDER NUMBER(s): [id number], ACCESSION NUMBER(s): [id number] CLINICAL HISTORY: abd distension TECHNIQUE: CT of the abdomen and pelvis was performed without intravenous contrast. This exam was performed according to our departmental dose optimization program. Up-to-date CT equipment and radiation dose reduction techniques are utilized as appropriate. CTDI: 18.93 DLP: 947.69 WID: COMPARISON: CT CHST AB PEL WO CON-NO IV/ORAL on DOS: 08/07/23 FINDINGS: Evaluation limited due to lack of intravenous contrast limited evaluation of the viscera and vasculature Lower Thorax: Mild cardiomegaly without pericardial effusion. Small ground-glass opacity in the lingula. Liver and Biliary system: Normal-sized liver. No definite hepatic lesion. Cholelithiasis and a normal caliber gallbladder. No definite biliary ductal dilatation. Spleen: Unremarkable. Adrenal Glands and Kidneys: Grossly normal adrenal glands. There appears to be mild right hydronephrosis. No left hydronephrosis. Pancreas and Retroperitoneum: The pancreas is limited in evaluation due to lack of contrast. No grossly enlarged retroperitoneal lymph nodes. Aorta and Major Vessels: Aortoiliac vessels are normal in caliber with mild calcified atherosclerotic plaque Bowel, Mesentery and Peritoneal space: Limited evaluation of the mesentery and peritoneal space due to paucity of fat. The bowel loops are normal in caliber. There is marked retained stool in the colon. No free air or definite loculated fluid collection. Pelvis: Urinary bladder is moderately distended. Dystrophic calcifications in the prostate gland. No grossly enlarged pelvic lymph nodes. Abdominal wall and Osseous Structures: There is moderate body wall edema. There is [id number] left convexity scoliosis of the lumbar spine. Multilevel lower thoracic and lumbar spondylosis. No destructive osseous lesion. IMPRESSION: 1. Marked retained stool in the colon concordant with constipation. 2. No bowel obstruction, fluid collection, or free air. 3. Mild cardiomegaly. 4. Small ground-glass opacity in the lingula which could reflect atelectasis or scarring. Pneumonia is also a consideration. 5. Moderate body wall edema Labs Test 11/18/24 23:10 11/18/24 21:16 11/18/24 21:14 Range/Units Urine Color Light-yellow Yellow Urine Clarity Clear Clear Urine pH 6.5 5.0-9.0 Urine Specific [place] 1.018 1.001-1.035 Urine Protein Negative Negative Urine Ketones Negative Negative Urine Blood Negative Negative /uL Urine Nitrite Negative Negative Urine Bilirubin Negative Negative Urine Urobilinogen Normal Negative mg/dL Urine Leukocyte Esterase Negative Negative /uL Urine RBC None seen 0 - 3 /hpf Urine Microscopic WBC < 1 0-3 /HPF Urine Squamous Epithelial Cells None seen <5 /hpf Urine Bacteria None seen None Seen /hpf Urine Glucose Trace Normal mg/dL White Blood Count 4.9 4.4-10.8 10^3/uL Red Blood Count 3.99 L 4.5-5.90 10^6/uL Hemoglobin 12.0 L 13.5-17.5 g/dL Hematocrit 36.2 L 41.0-53.0 % Mean Corpuscular Volume 90.6 80.0-100.0 fL Mean Corpuscular Hemoglobin 30.1 28.0-32.0 pg Mean Corpuscular Hemoglobin Concent 33.2 32.0-36.0 g/dL Red Cell Distribution Width 17.8 H 11.8-14.3 % Platelet Count 92 L 140-450 10^3/uL Mean Platelet Volume 9.3 6.9-10.8 fL Neutrophils (%) (Auto) 84.3 H 37.0-80.0 % Lymphocytes (%) (Auto) 10.3 10.0-50.0 % Monocytes (%) (Auto) 4.9 0.0-12.0 % Eosinophils (%) (Auto) 0.4 0.0-7.0 % Basophils (%) (Auto) 0.1 0.0-2.0 % Neutrophils # (Auto) 4.1 1.6-8.6 10 ^3/uL Lymphocytes # (Auto) 0.5 0.4-5.4 10 ^3/uL Monocytes # (Auto) 0.2 0-1.3 10 ^3/uL Eosinophils # (Auto) 0 0-0.8 10 ^3/uL Basophils # (Auto) 0 0-0.2 10 ^3/uL Nucleated Red Blood Cells 0.2 % Sodium Level 138 136-145 mmol/L Potassium Level 4.5 3.5-5.1 mmol/L Chloride Level 102 98-107 mmol/L Carbon Dioxide Level 34 H 20-31 mmol/L Anion Gap 2 L 5-15 Blood Urea Nitrogen 24 H 9-23 mg/dL Creatinine 0.53 L 0.700-1.30 mg/dL Glomerular Filtration Rate Calc 119 >90 mL/min BUN/Creatinine Ratio 45.3 H 10.0-20.0 Serum Glucose 194 H 74-106 mg/dL Lactic Acid Level 1.5 0.4-2.0 mmol/L Calcium Level 10.3 8.7-10.4 mg/dL Total Bilirubin 0.4 0.2-1.0 mg/dL Aspartate Amino Transferase (AST) 34 13-40 U/L Alanine Aminotransferase (ALT) 51 H 7-40 U/L Alkaline Phosphatase 107 46-116 U/L Total Protein 6.3 5.7-8.2 g/dL Albumin 3.8 3.2-4.8 g/dL Lipase 47 12-53 U/L POC Glucose 179 H 70-106 mg/dl Assessment/Plan Assessment/Plan Assessment Metabolic encephalopathy Community-acquired pneumonia Developmentally delayed Diabetes mellitus Hypothermia Bradycardia secondary to the above Plan Admit the patient to telemetry to the hospitalist Rocephin/azithromycin Resume home medications Continue treatment per orders. Plan discussed with: Other My Orders Orders - AFRICA BELL Procedure Category Date Status Time Stat Ekg For Chest [facility] 11/18/24 In Process Pain 23:56 Notify Of Changes [facility] 11/18/24 In Process From Base 23:56 Planning Engineer For [facility] 11/18/24 In Process 24 Hours 23:56 Emergency Dysrhythmia GEO 11/18/24 In Process Protocol 23:56 Rhythm Strips Once [facility] 11/18/24 In Process Every Shift 23:56 Oxygen By Nasal RT 11/18/24 Transmitted Cannula 23:56 Admit ADMIT 11/18/24 Transmitted 23:57 Basic Metabolic Panel LAB 11/19/24 Logged 04:00 Complete Blood Count LAB 11/19/24 Logged 04:00 Cardiac DIET 11/19/24 Transmitted Diet-2gna,Lofat,Lochol Breakfast Condition: Fair GEO 11/19/24 In Process 00:00 Bedrest With Bathroom GEO 11/19/24 In Process Privileg 00:00 Nitroglycerin PHA 11/19/24 In Process Sublingual (Ntrostat 00:45 Morphine Sulfate PHA 11/19/24 In Process Injection 00:45 Ceftriaxone 1gm/50ml PHA 11/19/24 In Process D5w (Rocephin) 09:00 Azithromycin 500mg/ PHA 11/19/24 In Process 250ml (Zithromax 50 10:00 Albuterol Medneb PHA 11/19/24 In Process (Ventolin Medneb) 00:45 Glucose Blood PHA 11/19/24 In Process (Accu-Chek Comfort 06:00 Insulin R (Human) PHA 11/19/24 In Process (Insulin R) 06:00 Dextrose 50% Syringe PHA 11/19/24 In Process 00:45 Ondansetron Hcl PHA 11/19/24 In Process (Zofran) 00:45 Date of Service: Nov 18, 2024 Billing Provider: AFRICA BELL Common Visit Codes: [id number] INP/OBS CARE (HIGH) AFRICA BELL Nov 19, 2024 04:37
[2024-11-19 05:16] LABS: Basophils # (auto) 0 10 ^3/uL (0-0.2); Basophils % (auto) 0.6 % (0.0-2.0); Eosinophils # (auto) 0 10 ^3/uL (0-0.8); Eosinophils % (auto) 0.5 % (0.0-7.0); Hematocrit 28.8 % (41.0-53.0); Lymphocytes # (auto) 0.5 10 ^3/uL (0.4-5.4); Lymphocytes % (auto) 9.6 % (10.0-50.0); Mean Corpuscular Hemoglobin 31.3 pg (28.0-32.0); Mean Corpuscular Hgb Conc. 34.9 g/dL (32.0-36.0); Mean Corpuscular Volume 89.8 fL (80.0-100.0); Monocytes # (auto) 0.2 10 ^3/uL (0-1.3); Neutrophils % (auto) 85.3 % (37.0-80.0); Nucleated Red Blood Cells % 0.1 %; Platelet Count (auto) 83 10^3/uL (140-450); Red Cell Distribution Width 17.8 % (11.8-14.3); White Blood Cell 4.7 10^3/uL (4.4-10.8)
[2024-11-19 05:38] LABS: Anion Gap 3 (5-15); Calcium 9.9 mg/dL (8.7-10.4); Chloride 105 mmol/L (98-107); Potassium 4.4 mmol/L (3.5-5.1); Sodium 141 mmol/L (136-145)
[2024-11-19 05:44] LABS: BUN/Creatinine Ratio 53.5 (10.0-20.0)
[2024-11-19 05:48] LABS: Blood Urea Nitrogen 23 mg/dL (9-23); Carbon Dioxide 33 mmol/L (20-31); Glucose 74 mg/dL (74-106)
[2024-11-19] MEDS: InsuLIN REG 1unit/0.01ml Soln (100units/ml) SC SCH ×2 (06:00)
--- NOTE | 2024-11-19 06:40 | ECG ---
[facility] Test Date: 2024-11-19 Test Time: 00:35:35 Pat Name: LILY SUTTON Department: ED Room: 0201T Gender: M Cigarette Examiner: WENDY : 1970 Requested By: ANTON EDMONDSON Order Number: [id number] Reading MD: Kory Kamara Measurements Intervals [place] Rate: 50 P: 74 UT: 197 QRS: 66 QRSD: 110 T: 29 QT: 468 QTc: 427 Interpretive Statements Sinus rhythm Borderline T wave abnormalities Electronically Signed On 11-19-2024 22:41:52 PDT by Kory Kamara Please click the below link to view image of tracing.
[2024-11-19] MEDS: cefTRIAXone 1GM/50ML D5W 50 ML IV SCH (09:35)
[2024-11-19] MEDS: AZITHROMYCIN 500MG/ 250ML 250 ML IV SCH (10:22)
--- NOTE | 2024-11-19 13:28 | DVHPN2 ---
Reviewed: Care Plan, H&P, Labs, Medications, Previous Orders, Radiology Changes from previous H/P or p: No Changes Objective Vitals Vital Signs Date Time Temp Pulse Resp B/P (MAP) Pulse Ox O2 Delivery O2 Flow Rate FiO2 11/19/24 12:00 89 11/19/24 10:49 97.5 16 125/64 (84) 98 97.5 11/19/24 07:37 Nasal Cannula* 1 24 Intake/Output Intake and Output 11/19/24 07:00 Intake Total 1300 ml Balance 1300 ml IV Total 1300 ml Medications Current Medications Medications Dose Ordered Sig/Elizabeth Route Start Time Stop Time Status Last Admin Dose Admin Nitroglycerin 0.4 mg Q5MINP PRN SL 11/19/24 00:45 Morphine Sulfate 2 mg Q30M PRN IV 11/19/24 00:45 Ceftriaxone Sodium 50 ml @ 100 mls/hr DAILY@09 IV 11/19/24 09:00 11/19/24 09:35 100 MLS/HR Azithromycin 250 ml @ 125 mls/hr DAILY IV 11/19/24 10:00 11/19/24 10:22 125 MLS/HR Albuterol 2.5 mg Q6HPRN PRN NEB 11/19/24 00:45 Cancel Diagnostic Test (Pha) 1 strip Q6HR 11/19/24 06:00 11/19/24 06:29 1 STRIP Insulin Human Regular Q6HR SC 11/19/24 06:00 Dextrose 50 ml UD PRN IV 11/19/24 00:45 Ondansetron HCl 4 mg Q4HP PRN IV 11/19/24 00:45 Laboratory Results Laboratory Tests 11/19/24 05:00 Chemistry Test 11/18/24 21:16 11/19/24 05:00 Albumin 3.8 g/dL (3.2-4.8) Calcium Level 10.3 mg/dL (8.7-10.4) 9.9 mg/dL (8.7-10.4) Total Protein 6.3 g/dL (5.7-8.2) Lipid panel Test 11/18/24 21:16 Lipase 47 U/L (12-53) LFT Test 11/18/24 21:16 Alanine Aminotransferase (ALT) 51 U/L (7-40) H Alkaline Phosphatase 107 U/L (46-116) Aspartate Amino Transferase (AST) 34 U/L (13-40) Total Bilirubin 0.4 mg/dL (0.2-1.0) Urinalysis Test 11/18/24 23:10 Urine Color Light-yellow (Yellow) Urine Clarity Clear (Clear) Urine pH 6.5 (5.0-9.0) Urine Specific [place] 1.018 (1.001-1.035) Urine Protein Negative (Negative) Urine Ketones Negative (Negative) Urine Blood Negative /uL (Negative) Urine Nitrite Negative (Negative) Urine Bilirubin Negative (Negative) Urine Urobilinogen Normal mg/dL (Negative) Urine Leukocyte Esterase Negative /uL (Negative) Urine RBC None seen /hpf (0 - 3) Urine Microscopic WBC < 1 /HPF (0-3) Urine Squamous Epithelial Cells None seen /hpf (<5) Urine Bacteria None seen /hpf (None Seen) Urine Glucose Trace mg/dL (Normal) Labs and/or images reviewed: Labs reviewed by me, Image(s) reviewed by me Assessment/Plan Assessment/Plan Sepsis secondary to pneumonia : Blood cultures Left lower lobe pneumonia: Rocephin azithromycin Constipation: Lactulose adult Fleet enema Hypertension Developmental delay Diabetes Time spent 50 minutes Patient is full code Advanced care planning time 20 mts Plan discussed with: Patient My Orders Orders - GLENNY DUMONT MD Procedure Category Date Status Time Lactulose Oral PHA 11/19/24 Verified 13:30 Fleet Enema Adult PHA 11/19/24 Verified 13:30 Date of Service: Nov 19, 2024 Billing Provider: GLENNY DUMONT MD Common Visit Codes: [id number] INP/OBS CARE(HIGH) Secondary Visit Codes: [id number] CARE PLAN 30 MINUTES GLENNY DUMONT MD Nov 19, 2024 13:28
[2024-11-19] MEDS ORDERED: FLEET ENEMA(ADULT) 135 ML PR ONE (13:30)
[2024-11-19] MEDS: LACTULOSE 20Gm/30ML SOLN PO ONE (13:30)
[2024-11-19] MEDS ORDERED: METF-370 PO (18:09)
[2024-11-19 19:27] LABS: COVID19 ANTIGEN SOFIA FIA NEGATIVE (NEGATIVE); Rapid Influenza A Negative (Negative); Rapid Influenza B Negative (Negative)
[2024-11-20] VITALS (9 sets, daily range): BP systolic 121–144; BP diastolic 73–96; PULSE 57–86; RESP 17–19; TEMP 96.9–97.6; O2SAT 94–99
--- NOTE | 2024-11-20 07:41 | DVHPN2 ---
Reviewed: Care Plan, H&P, Labs, Medications, Previous Orders, Radiology Changes from previous H/P or p: No Changes Objective Vitals Vital Signs Date Time Temp Pulse Resp B/P (MAP) Pulse Ox O2 Delivery O2 Flow Rate FiO2 11/20/24 05:00 97.6 62 18 121/78 (92) 98 97.6 11/19/24 20:00 Nasal Cannula* 2 28 Intake/Output Intake and Output 11/20/24 07:00 Intake Total 840 ml Output Total 4150 ml Balance -3310 ml Intake Oral 840 ml Output Urine Total 4150 ml Medications Current Medications Medications Dose Ordered Sig/Elizabeth Route Start Time Stop Time Status Last Admin Dose Admin Nitroglycerin 0.4 mg Q5MINP PRN SL 11/19/24 00:45 Morphine Sulfate 2 mg Q30M PRN IV 11/19/24 00:45 Ceftriaxone Sodium 50 ml @ 100 mls/hr DAILY@09 IV 11/19/24 09:00 11/19/24 09:35 100 MLS/HR Azithromycin 250 ml @ 125 mls/hr DAILY IV 11/19/24 10:00 11/19/24 10:22 125 MLS/HR Albuterol 2.5 mg Q6HPRN PRN NEB 11/19/24 00:45 Cancel Diagnostic Test (Pha) 1 strip Q6HR 11/19/24 06:00 11/20/24 05:45 1 STRIP Insulin Human Regular Q6HR SC 11/19/24 06:00 11/19/24 12:00 2 UNITS Dextrose 50 ml UD PRN IV 11/19/24 00:45 Ondansetron HCl 4 mg Q4HP PRN IV 11/19/24 00:45 Laboratory Results Laboratory Tests 11/19/24 05:00 Urinalysis Test 11/18/24 23:10 Urine Color Light-yellow (Yellow) Urine Clarity Clear (Clear) Urine pH 6.5 (5.0-9.0) Urine Specific [place] 1.018 (1.001-1.035) Urine Protein Negative (Negative) Urine Ketones Negative (Negative) Urine Blood Negative /uL (Negative) Urine Nitrite Negative (Negative) Urine Bilirubin Negative (Negative) Urine Urobilinogen Normal mg/dL (Negative) Urine Leukocyte Esterase Negative /uL (Negative) Urine RBC None seen /hpf (0 - 3) Urine Microscopic WBC < 1 /HPF (0-3) Urine Squamous Epithelial Cells None seen /hpf (<5) Urine Bacteria None seen /hpf (None Seen) Urine Glucose Trace mg/dL (Normal) Labs and/or images reviewed: Labs reviewed by me, Image(s) reviewed by me Assessment/Plan Assessment/Plan Sepsis secondary to pneumonia : Blood cultures Left lower lobe pneumonia: Rocephin azithromycin Constipation: Lactulose adult Fleet enema Hypertension Developmental delay ? Diabetes: Blood sugars normal, we will check A1c Acute dehydration: D5 NS with 20 mEq potassium 125 per hr Time spent 50 minutes Patient is full code Advanced care planning time 20 mts Plan discussed with: Patient My Orders Orders - GLENNY DUMONT MD Procedure Category Date Status Time * Wound Consult CONS 11/19/24 Transmitted Date of Service: Nov 20, 2024 Billing Provider: GLENNY DUMONT MD Common Visit Codes: [id number] INP/OBS CARE(HIGH) GLENNY DUMONT MD Nov 20, 2024 07:41
[2024-11-20] MEDS ORDERED: cefTRIAXone 1GM/50ML D5W 50 ML IV SCH (09:00)
[2024-11-20] MEDS: D5W/ SOD CHL 0.9%/KCL 20MEQ 1,000 ML IV SCH (09:47)
[2024-11-20] MEDS ORDERED: AZITHROMYCIN 500MG/ 250ML 250 ML IV SCH (10:00)
[2024-11-21] VITALS (9 sets, daily range): BP systolic 117–147; BP diastolic 73–89; PULSE 49–68; RESP 18; TEMP 97.6–98.3; O2SAT 91–100
[2024-11-21] MEDS ORDERED: LEVO500T91 PO (07:59)
[2024-11-21] MEDS ORDERED: ZOLP10TA PO (07:59)
--- NOTE | 2024-11-21 08:02 | DVHPN2 ---
Reviewed: Care Plan, H&P, Labs, Medications, Previous Orders, Radiology Changes from previous H/P or p: No Changes Objective Vitals Vital Signs Date Time Temp Pulse Resp B/P (MAP) Pulse Ox O2 Delivery O2 Flow Rate FiO2 11/21/24 05:00 97.6 61 18 139/80 (99) 95 97.6 11/20/24 20:00 Nasal Cannula* 2 28 Intake/Output Intake and Output 11/21/24 07:00 Intake Total 4100 ml Output Total 3475 ml Balance 625 ml Intake Oral 1800 ml IV Total 2300 ml Output Urine Total 3475 ml Medications Current Medications Medications Dose Ordered Sig/Elizabeth Route Start Time Stop Time Status Last Admin Dose Admin Nitroglycerin 0.4 mg Q5MINP PRN SL 11/19/24 00:45 Morphine Sulfate 2 mg Q30M PRN IV 11/19/24 00:45 Ceftriaxone Sodium 50 ml @ 100 mls/hr DAILY@09 IV 11/19/24 09:00 11/20/24 08:50 100 MLS/HR Azithromycin 250 ml @ 125 mls/hr DAILY IV 11/19/24 10:00 11/20/24 09:51 125 MLS/HR Albuterol 2.5 mg Q6HPRN PRN NEB 11/19/24 00:45 Cancel Ondansetron HCl 4 mg Q4HP PRN IV 11/19/24 00:45 Potassium Chloride/Dextrose/ Sod Cl 1,000 ml @ 120 mls/hr Q8H20M IV 11/20/24 07:45 11/21/24 04:17 120 MLS/HR Laboratory Results Laboratory Tests 11/19/24 05:00 HgA1c, TSH Test 11/20/24 08:17 Hemoglobin A1c 5.7 % A1C (<5.7) Urinalysis Test 11/18/24 23:10 Urine Color Light-yellow (Yellow) Urine Clarity Clear (Clear) Urine pH 6.5 (5.0-9.0) Urine Specific [place] 1.018 (1.001-1.035) Urine Protein Negative (Negative) Urine Ketones Negative (Negative) Urine Blood Negative /uL (Negative) Urine Nitrite Negative (Negative) Urine Bilirubin Negative (Negative) Urine Urobilinogen Normal mg/dL (Negative) Urine Leukocyte Esterase Negative /uL (Negative) Urine RBC None seen /hpf (0 - 3) Urine Microscopic WBC < 1 /HPF (0-3) Urine Squamous Epithelial Cells None seen /hpf (<5) Urine Bacteria None seen /hpf (None Seen) Urine Glucose Trace mg/dL (Normal) Labs and/or images reviewed: Labs reviewed by me, Image(s) reviewed by me Assessment/Plan Assessment/Plan Sepsis secondary to pneumonia resolved: Patient on room air Left lower lobe pneumonia: Treated with Rocephin azithromycin Constipation: Lactulose adult Fleet enema Hypertension Developmental delay Patient does not have diabetes A1c 5.7 Acute dehydration: D5 NS with 20 mEq potassium 125 per hr now resolved Time spent 50 minutes Patient is full code Advanced care planning time 20 mts Plan discussed with: Patient My Orders Orders - GLENNY DUMONT MD Procedure Category Date Status Time * Dietary Consult CONS 11/20/24 Transmitted 13:45 Cover Wound With Foam GEO 11/20/24 In Process Dressing 10:58 Date of Service: Nov 21, 2024 Billing Provider: GLENNY DUMONT MD Common Visit Codes: [id number] INP/OBS CARE(HIGH) GLENNY DUMONT MD Nov 21, 2024 08:02
--- NOTE | 2024-11-21 08:06 | DVHDS2 ---
Discharge Summary Date of Admission Nov 18, 2024 at 23:57 Date of Discharge: Nov 21, 2024 Admitting Diagnosis Abdominal pain Wounds: None Labs/Diagnostic Data: Laboratory Results Test 11/20/24 08:17 11/20/24 05:40 11/19/24 18:45 11/19/24 05:00 Hemoglobin A1c 5.7 % A1C (<5.7) POC Glucose 81 mg/dl (70-106) Influenza Type A Antigen Negative (Negative) Influenza Type B Antigen Negative (Negative) SARS-CoV-2 Antigen (Rapid) Negative (NEGATIVE) White Blood Count 4.7 10^3/uL (4.4-10.8) Red Blood Count 3.20 10^6/uL (4.5-5.90) Hemoglobin 10.0 g/dL (13.5-17.5) Hematocrit 28.8 % (41.0-53.0) Mean Corpuscular Volume 89.8 fL (80.0-100.0) Mean Corpuscular Hemoglobin 31.3 pg (28.0-32.0) Mean Corpuscular Hemoglobin Concent 34.9 g/dL (32.0-36.0) Red Cell Distribution Width 17.8 % (11.8-14.3) Platelet Count 83 10^3/uL (140-450) Mean Platelet Volume 9.0 fL (6.9-10.8) Neutrophils (%) (Auto) 85.3 % (37.0-80.0) Lymphocytes (%) (Auto) 9.6 % (10.0-50.0) Monocytes (%) (Auto) 4.0 % (0.0-12.0) Eosinophils (%) (Auto) 0.5 % (0.0-7.0) Basophils (%) (Auto) 0.6 % (0.0-2.0) Neutrophils # (Auto) 4.0 10 ^3/uL (1.6-8.6) Lymphocytes # (Auto) 0.5 10 ^3/uL (0.4-5.4) Monocytes # (Auto) 0.2 10 ^3/uL (0-1.3) Eosinophils # (Auto) 0 10 ^3/uL (0-0.8) Basophils # (Auto) 0 10 ^3/uL (0-0.2) Nucleated Red Blood Cells 0.1 % Sodium Level 141 mmol/L (136-145) Potassium Level 4.4 mmol/L (3.5-5.1) Chloride Level 105 mmol/L (98-107) Carbon Dioxide Level 33 mmol/L (20-31) Anion Gap 3 (5-15) Blood Urea Nitrogen 23 mg/dL (9-23) Creatinine 0.43 mg/dL (0.700-1.30) Glomerular Filtration Rate Calc 127 mL/min (>90) BUN/Creatinine Ratio 53.5 (10.0-20.0) Serum Glucose 74 mg/dL (74-106) Calcium Level 9.9 mg/dL (8.7-10.4) Test 11/18/24 23:10 11/18/24 21:16 Urine Color Light-yellow (Yellow) Urine Clarity Clear (Clear) Urine pH 6.5 (5.0-9.0) Urine Specific [place] 1.018 (1.001-1.035) Urine Protein Negative (Negative) Urine Ketones Negative (Negative) Urine Blood Negative /uL (Negative) Urine Nitrite Negative (Negative) Urine Bilirubin Negative (Negative) Urine Urobilinogen Normal mg/dL (Negative) Urine Leukocyte Esterase Negative /uL (Negative) Urine RBC None seen /hpf (0 - 3) Urine Microscopic WBC < 1 /HPF (0-3) Urine Squamous Epithelial Cells None seen /hpf (<5) Urine Bacteria None seen /hpf (None Seen) Urine Glucose Trace mg/dL (Normal) Lactic Acid Level 1.5 mmol/L (0.4-2.0) Total Bilirubin 0.4 mg/dL (0.2-1.0) Aspartate Amino Transferase (AST) 34 U/L (13-40) Alanine Aminotransferase (ALT) 51 U/L (7-40) Alkaline Phosphatase 107 U/L (46-116) Total Protein 6.3 g/dL (5.7-8.2) Albumin 3.8 g/dL (3.2-4.8) Lipase 47 U/L (12-53) Other Laboratory Tests 11/19/24 05:00 Brief Hx & Hospital Course: 54-year-old male with a developmental delay burden by caregiver for abdominal pain and constipation. CT abdomen pelvis without contrast was negative except for constipation treated with the lactulose and Fleet enema constipation relieved found to have community-acquired pneumonia left lower lobe treated with Rocephin azithromycin patient feels better currently on room air afebrile stable vital signs , caregiver and aunt Jeanna at the bed side. Discharged home on Levaquin for pneumonia and Ambien for sleep he will continue all other home medications and follow up with his primary Dr Dr. Gonzales. The discharge plan acceptable to the caregiver \\ Consults/Reason for consult None Operations or Procedures CT abdomen pelvis without contrast Condition at Discharge: Fair Final Diagnosis/Problems List Sepsis secondary to pneumonia resolved: Patient on room air Left lower lobe pneumonia: Treated with Rocephin azithromycin Constipation: Lactulose adult Fleet enema Hypertension Developmental delay Patient does not have diabetes A1c 5.7 Acute dehydration: D5 NS with 20 mEq potassium 125 per hr now resolved Discharge Disposition: Home Discharge Instruct/Medications Diet: Regular Activity: Light activity Follow Up/Referral: Resume all previous home medications Follow up with your primary Dr Dr. Gonzales Medications: Levaquin Ambien Transmitted to pharmacy 35 (Time taken for discharge summary 35 minutes) Discharge Statement: "Patient was advised to return to the ER or call 911 if any headaches, dizziness, shortness of breath, chest pain, abdominal pain, bleeding, fevers, or worsening of medical condition. Patient was counseled about treatment plan, medications, possible side effects, patientverbalized understanding. All questions were answered to the best of my ability. This discharge took greater then 30 minutes in planning, reviewing documentation, counseling the patient, and discussing with other team members." ASSESSMENT ASSESSMENT Hospital Course Improved Assessment Sepsis secondary to pneumonia resolved: Patient on room air Left lower lobe pneumonia: Treated with Rocephin azithromycin Constipation: Lactulose adult Fleet enema Hypertension Developmental delay Patient does not have diabetes A1c 5.7 Acute dehydration: D5 NS with 20 mEq potassium 125 per hr now resolved Date of Service: Nov 21, 2024 Billing Provider: GLENNY DUMONT MD Common Visit Codes: [id number] DISCH DAY >30min GLENNY DUMONT MD Nov 21, 2024 08:06
--- NOTE | 2024-11-21 13:29 | DVHINCON2 ---
Date Seen: Nov 21, 2024 Referring Physician MD Gabriele Reason for Consultation Bradycardia History of Present Illness This is a 54-year-old male patient who presents to the emergency room with chief complaint of abdominal pain and skin rash. The patient has a developmental delay. His caregiver/aunt, who was at bedside is able to give an accurate history. Per the patient's caregiver, she noticed that the patient began having a rash around his buttock area which traveled down both of his legs and to his groin area. She grew concerned and decided to bring him to the emergency room for further evaluation. Cardiology has been consulted at this time for bradycardia. Initial twelve lead electrocardiogram reveals sinus bradycardia. At the time of assessment, the patient remains in sinus bradycardia without any significant pauses or atrioventricular blocks. Significant past medical history includes hypertension, type 2 diabetes mellitus, and developmental delay. Past Medical History Past medical history reviewed. No other significant than mentioned above. Past Surgical History Denies any previous surgeries Family History: FH: pancreatic cancer G8 FATHER, FHx: suicide G8 MOTHER, Family History Family history reviewed. Social History Denies the use of tobacco, alcohol or illicit drugs. Allergies: Coded Allergies: NO KNOWN ALLERGIES (Unverified , 08/06/23) Home Meds Active Scripts Zolpidem Tartrate (Ambien) 10 Mg Tab, 1 TAB PO QPM PRN, #15 TAB 5 Refills Prov:GLENNY DUMONT MD 11/21/24 Levofloxacin Hemihydrate (LEVAQUIN 500 MG) 500 Mg Tab, 1 TAB PO DAILY, #10 TAB Prov:GLENNY DUMONT MD 11/21/24 Blood Glucose Monitoring Suppl (D-Care Glucometer Kit/Glu W/Device) 1 Kit Kit, KIT XX BID, #1 Prov:MARIA T MCKEON NP 08/13/23 Levofloxacin Hemihydrate (LEVAQUIN 500 MG) 500 Mg Tab, 500 MG PO DAILY for 7 Days, #7 TAB Prov:AMRIA T MCKEON NP 08/13/23 Metformin Hydrochloride (Metformin Hcl) 500 Mg Tab, 0.5 TAB PO BID for 60 Days, #60 TAB 3 Refills Prov:MARIA T MCKEON NP 08/13/23 Reported Medications Metformin Hydrochloride (Metformin Hcl) 500 Mg Tab, 250 MG PO IBID for 30 Days, MG 11/19/24 Aripiprazole (Abilify) 20 Mg Tab, 1 TAB PO DAILY, #30 TAB 1 Refill 08/07/23 Colestipol Hcl (Micronized Colestipol Hcl) 1 Gm Tab, 1 GM PO DAILY, TAB 08/07/23 Losartan Potassium (Losartan Potassium) 25 Mg Tab, 1 TAB PO DAILY, #90 TAB 1 Refill 08/07/23 Home Meds Home medications reviewed. Review of Systems Constitutional: No symptom reported Ears, Nose, & Throat: No symptom reported Eyes: No symptom reported Neurological: No symptoms reported Pulmonary/Respiratory: No symptoms reported Cardiovascular: No symptom reported Gastrointestinal: Abdominal pain Genitourinary: No symptom reported Musculoskeletal: No symptom reported Skin: No symptom reported Psychiatric: No symptom reported Endocrine: No symptom reported Hematologic/Lymphatic: No symptom reported Vital Signs Vital Signs Date Time Temp Pulse Resp B/P (MAP) Pulse Ox O2 Delivery O2 Flow Rate FiO2 11/21/24 09:00 98.0 56 18 147/76 (99) 94 98.0 11/21/24 07:30 Nasal Cannula* 2 28 Physical Exam General Appearance: Cooperative. Well-developed. Well-nourished. No acute distress. Pulmonary/Respiratory: Clear, bilateral breaths sounds. Cardiovascular/Chest: Regular rate and rhythm. Peripheral Pulses: 2+ Radial (R). 2+ Radial (L). 2+ Pedal (R). 2+ Pedal (L) Abdominal Exam: Normal bowel sounds. Ankle Exam: Negative 2+ pitting edema Lower extremities: 2+ pitting edema Neuro/Mental Status: A/OX2, coherent. Developmentally delayed Thoughts/Psych: Deferred Appearance: No acute distress. Skin Exam: Normal inspection. Normal color. Warm and dry. Labs/Diagnostic Data Labs Test 11/20/24 08:17 11/20/24 05:40 11/19/24 18:45 11/19/24 05:00 Range/Units Hemoglobin A1c 5.7 <5.7 % A1C POC Glucose 81 70-106 mg/dl Influenza Type A Antigen Negative Negative Influenza Type B Antigen Negative Negative SARS-CoV-2 Antigen (Rapid) Negative NEGATIVE White Blood Count 4.7 4.4-10.8 10^3/uL Red Blood Count 3.20 L 4.5-5.90 10^6/uL Hemoglobin 10.0 #L 13.5-17.5 g/dL Hematocrit 28.8 #L 41.0-53.0 % Mean Corpuscular Volume 89.8 80.0-100.0 fL Mean Corpuscular Hemoglobin 31.3 28.0-32.0 pg Mean Corpuscular Hemoglobin Concent 34.9 32.0-36.0 g/dL Red Cell Distribution Width 17.8 H 11.8-14.3 % Platelet Count 83 L 140-450 10^3/uL Mean Platelet Volume 9.0 6.9-10.8 fL Neutrophils (%) (Auto) 85.3 H 37.0-80.0 % Lymphocytes (%) (Auto) 9.6 L 10.0-50.0 % Monocytes (%) (Auto) 4.0 0.0-12.0 % Eosinophils (%) (Auto) 0.5 0.0-7.0 % Basophils (%) (Auto) 0.6 0.0-2.0 % Neutrophils # (Auto) 4.0 1.6-8.6 10 ^3/uL Lymphocytes # (Auto) 0.5 0.4-5.4 10 ^3/uL Monocytes # (Auto) 0.2 0-1.3 10 ^3/uL Eosinophils # (Auto) 0 0-0.8 10 ^3/uL Basophils # (Auto) 0 0-0.2 10 ^3/uL Nucleated Red Blood Cells 0.1 % Sodium Level 141 136-145 mmol/L Potassium Level 4.4 3.5-5.1 mmol/L Chloride Level 105 98-107 mmol/L Carbon Dioxide Level 33 H 20-31 mmol/L Anion Gap 3 L 5-15 Blood Urea Nitrogen 23 9-23 mg/dL Creatinine 0.43 L 0.700-1.30 mg/dL Glomerular Filtration Rate Calc 127 >90 mL/min BUN/Creatinine Ratio 53.5 H 10.0-20.0 Serum Glucose 74 # 74-106 mg/dL Calcium Level 9.9 8.7-10.4 mg/dL Test 11/18/24 23:10 11/18/24 21:16 Range/Units Urine Color Light-yellow Yellow Urine Clarity Clear Clear Urine pH 6.5 5.0-9.0 Urine Specific [place] 1.018 1.001-1.035 Urine Protein Negative Negative Urine Ketones Negative Negative Urine Blood Negative Negative /uL Urine Nitrite Negative Negative Urine Bilirubin Negative Negative Urine Urobilinogen Normal Negative mg/dL Urine Leukocyte Esterase Negative Negative /uL Urine RBC None seen 0 - 3 /hpf Urine Microscopic WBC < 1 0-3 /HPF Urine Squamous Epithelial Cells None seen <5 /hpf Urine Bacteria None seen None Seen /hpf Urine Glucose Trace Normal mg/dL Lactic Acid Level 1.5 0.4-2.0 mmol/L Total Bilirubin 0.4 0.2-1.0 mg/dL Aspartate Amino Transferase (AST) 34 13-40 U/L Alanine Aminotransferase (ALT) 51 H 7-40 U/L Alkaline Phosphatase 107 46-116 U/L Total Protein 6.3 5.7-8.2 g/dL Albumin 3.8 3.2-4.8 g/dL Lipase 47 12-53 U/L Assessment Sinus bradycardia Rule out structural heart disease Hypertension Pneumonia History of type 2 diabetes mellitus Developmentally delayed Plan/Recommendation We will continue with the following plan/recommendations (Dr. Kamara): Case discussed with . We will proceed with obtaining a transthoracic echocardiogram to evaluate cardiac function. The patient is noted to have sinus bradycardia without pauses or atrioventricular blocks on nuclear monitoring technician. We will recommend to continue to avoid all AV sumi blocking agents. Given that the patient has no pauses, no atrioventricular blocks, and is completely asymptomatic, he is not a candidate for a temporary or permanent pacemaker. In the setting of an unremarkable transthoracic echocardiogram, there is no further inpatient cardiac workup indicated at this time. Thank you for allowing us to care for this patient. Please call with any questions or concerns. Critical care time spent: 44 minutes This medical document was created using an electronic medical record system with voice recognition software and computerized dictation system. Although this document has been carefully reviewed, there might still be some phonetic and typographical errors. Occasional wrong-word or ``sound-alike substitutions may have occurred due to the inherent limitations of voice recognition software. These areas are purely typographical due to imperfections of the software programs and do not reflect any compromise in the patient's medical care. Please read the chart carefully and recognize, using context, where these substitutions have occurred. Plan discussed with: Patient, Other (Caregiver at bedside) NYHA Physical activity limitations: NA Date of Service: Nov 21, 2024 Billing Provider: JESSE WOMACK OUTREACH REPRESENTATIVE Cardiology Common Codes: [id number] INP/OBS CARE (High) Cardiology Consultation Codes: [id number] CONSULT <45MIN JESSE WOMACK Nov 21, 2024 13:29
[2024-11-22] VITALS (7 sets, daily range): BP systolic 120–133; BP diastolic 63–79; PULSE 55–78; RESP 18–20; TEMP 97.5–98.9; O2SAT 92–99
--- NOTE | 2024-11-22 08:16 | DVHPN2 ---
Reviewed: Care Plan, H&P, Labs, Medications, Previous Orders, Radiology Changes from previous H/P or p: No Changes Objective Vitals Vital Signs Date Time Temp Pulse Resp B/P (MAP) Pulse Ox O2 Delivery O2 Flow Rate FiO2 11/21/24 21:00 97.6 60 18 117/73 (88) 100 97.6 11/21/24 20:00 Nasal Cannula* 2 28 Intake/Output Intake and Output 11/22/24 07:00 Intake Total 4300 ml Output Total 4825 ml Balance -525 ml Intake Oral 3000 ml IV Total 1300 ml Output Urine Total 4825 ml Medications Current Medications Medications Dose Ordered Sig/Elizabeth Route Start Time Stop Time Status Last Admin Dose Admin Nitroglycerin 0.4 mg Q5MINP PRN SL 11/19/24 00:45 Morphine Sulfate 2 mg Q30M PRN IV 11/19/24 00:45 Ceftriaxone Sodium 50 ml @ 100 mls/hr DAILY@09 IV 11/19/24 09:00 11/21/24 08:48 100 MLS/HR Azithromycin 250 ml @ 125 mls/hr DAILY IV 11/19/24 10:00 11/21/24 10:05 125 MLS/HR Albuterol 2.5 mg Q6HPRN PRN NEB 11/19/24 00:45 Cancel Ondansetron HCl 4 mg Q4HP PRN IV 11/19/24 00:45 Potassium Chloride/Dextrose/ Sod Cl 1,000 ml @ 120 mls/hr Q8H20M IV 11/20/24 07:45 11/22/24 01:25 120 MLS/HR Laboratory Results Laboratory Tests 11/19/24 05:00 HgA1c, TSH Test 11/21/24 18:04 Thyroid Stimulating Hormone (TSH) 2.98 uIU/mL (0.55-4.78) Urinalysis Test 11/18/24 23:10 Urine Color Light-yellow (Yellow) Urine Clarity Clear (Clear) Urine pH 6.5 (5.0-9.0) Urine Specific [place] 1.018 (1.001-1.035) Urine Protein Negative (Negative) Urine Ketones Negative (Negative) Urine Blood Negative /uL (Negative) Urine Nitrite Negative (Negative) Urine Bilirubin Negative (Negative) Urine Urobilinogen Normal mg/dL (Negative) Urine Leukocyte Esterase Negative /uL (Negative) Urine RBC None seen /hpf (0 - 3) Urine Microscopic WBC < 1 /HPF (0-3) Urine Squamous Epithelial Cells None seen /hpf (<5) Urine Bacteria None seen /hpf (None Seen) Urine Glucose Trace mg/dL (Normal) Labs and/or images reviewed: Labs reviewed by me, Image(s) reviewed by me Assessment/Plan Assessment/Plan Sepsis secondary to pneumonia resolved: Patient on room air Left lower lobe pneumonia: Treated with Rocephin azithromycin Constipation: Lactulose adult Fleet enema Hypertension Developmental delay Patient does not have diabetes A1c 5.7 Acute dehydration: D5 NS with 20 mEq potassium 125 per hr now resolved Time spent 50 minutes Patient is full code While Awaiting to go home patient developed sinus bradycardia, seen by poultry offal worker Dr. Kamara Sinus bradycardia without pauses or blocks, awaiting echo report Plan discussed with: Patient My Orders Orders - GLENNY DUMONT MD Procedure Category Date Status Time * Cardiology Consult CONS 11/21/24 Transmitted 11:50 Date of Service: Nov 22, 2024 Billing Provider: GLENNY DUMONT MD Common Visit Codes: [id number] INP/OBS CARE(HIGH) GLENNY DUMONT MD Nov 22, 2024 08:16
--- NOTE | 2024-11-22 12:35 | ECG ---
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
--- NOTE | 2024-11-22 13:54 | DVHSR ---
APPROVED REPORT EXAM: Two-dimensional and M-mode echocardiogram with Doppler and color Doppler. Blood Pressure: 117/73 mmHg INDICATION Evaluate cardiac function RISK FACTORS Height: 5'6, Weight: 214 DIMENSIONS LVDd5.1 (3.8-5.7cm)LA (2D)6.2 (1.9-4.0cm)Aortic Root3.7 (2.0-3.7cm) LVDs3.1 (2.5-4.0cm)LA (MM) (1.9-4.0cm)Aortic Cusp Exc2.2 (1.5-2.0cm) EF (%) 65.0 (55-70%)Rt. Atrium4.4 (1.9-4.0cm)Asc. Aorta3.3 cm IVSd1.2 (0.7-1.1cm)RV (D)4.5 (1.8-2.4cm) PWd0.9 (0.7-1.1cm) Mitral Valve MitralMitral Stenosis E wave0.87m/sMV Mean GR.mmHg A wave0.76m/sMV Peak GR.100mmHg E/A ratio1.12D MVAcm2 DECEL [id number] 1/2 [place] Aortic Valve Aortic ValveAortic Stenosis V11.10m/Timur Mean GR.4mmHg V21.36m/Timur Peak GR.7mmHg LVOT Diameter2.6 (1.8-2.4cm)Doppler AVA4.29cm2 Pulmonic Valve V21.00m/s Tricuspid Valve TR Velocity2.83m/s [id number] Other Information Quality : Technically LimitedRhythm : Technically limited study due to patient moving. Conclusion Technically good study. Atrial fibrillation Concentric LVH with left atrial enlargement. Right ventricular enlargement. Valves appear To be structurally normal. Left ventricular function is preserved at 55% with normal RV function. Mild PI. Mild MR. Minute pericardial effusion not hemodynamically significant. No masses or vegetations discernible.
== END 2024-11-22 22:50 | disposition home or self-care (01) | DRG 871 ==
LOC: ER 20:31 → OVERFLOW 23:57 → TELE-CENTR 11-19 15:56
PROVIDERS: ADMIT Family Medicine; ATTEND Family Medicine
DX: A41.9 Sepsis, unspecified organism (principal); J18.9 Pneumonia, unspecified organism; E11.9 Type 2 diabetes mellitus without complications; I10 Essential (primary) hypertension; R00.1 Bradycardia, unspecified; K59.00 Constipation, unspecified; R68.0 Hypothermia, not associated with low environmental temperature; R62.50 Unspecified lack of expected normal physiological development in childhood; E86.0 Dehydration; Z20.822 Contact with and (suspected) exposure to COVID-19; L30.9 Dermatitis, unspecified; Z79.899 Other long term (current) drug therapy; Z79.84 Long term (current) use of oral hypoglycemic drugs; Z79.2 Long term (current) use of antibiotics; Z80.0 Family history of malignant neoplasm of digestive organs
CPT/HCPCS: 36415; 74176; 80048; 80053; 81001; 82962; 83036; 83605; 83690; 84443; 85025; 87426; 87804; 93005; 93306; 96365; G0378; J1815